=== PATIENT | male | born 1960 | race African-American/Black ===

== ENCOUNTER 2023-04-09 21:35 | Emergency (ER) | payer SELFPAY ==
[~2023-04-09] VITALS: Ht 167.6 cm; Wt 62.0 kg
[2023-04-09 21:39] VITALS: TEMP 98.9; O2SAT 97
[2023-04-09 22:42] LABS: BASOPHILS % 0.3 % (0.0-2.0); EOSINOPHILS % 0.5 % (0.0-5.0); HEMATOCRIT. 41.3 % (42.0-52.0); LYMPHOCYTES % 8.6 % (20.0-50.0); MEAN CORPUSCULAR HEMOGLOBIN 32.1 pg (28.0-32.0); MEAN CORPUSCULAR VOLUME 95.1 fL (80.0-94.0); MEAN PLATELET VOLUME 7.8 fl (7.4-10.4); MONOCYTES % 3.9 % (2.0-8.0); NEUTROPHILS % 86.7 % (40.0-76.0); PLATELET 221 x1000/uL (130-400); RED BLOOD CELL COUNT 4.35 mill/uL (4.7-6.1); RED CELL DISTRIBUTION WIDTH 13.7 % (11.6-14.6)
[2023-04-09 22:50] LABS: CHLORIDE 109 mEq/L (98-107)
[2023-04-09 23:01] LABS: ETHANOL BLOOD < 10 mg/dL (-10)
[2023-04-09 23:43] VITALS: BP 148/68; PULSE 73; RESP 18
[2023-04-09] MEDS ORDERED: HYDROCODONE/ACETAMINOPHEN 5/325MG TABLET PO STA (23:43)
[2023-04-10] MEDS ORDERED: NAPR-681 PO (01:02)
[2023-04-10] MEDS ORDERED: CYCL5TAB PO (01:02)
== END 2023-04-10 01:44 | disposition home or self-care (01) ==
LOC: ER 21:35
DX: S20.219A Contusion of unspecified front wall of thorax, initial encounter (principal); F12.10 Cannabis abuse, uncomplicated; M25.552 Pain in left hip; V49.49XA Driver injured in collision with other motor vehicles in traffic accident, initial encounter; Y93.89 Activity, other specified; Y92.89 Other specified places as the place of occurrence of the external cause; Y99.8 Other external cause status
CPT/HCPCS: 80053; 80320; 83880; 85025; 84484; 36415; 71045; 93005; 99285; 73502; 73552; Z7610; G0480

== ENCOUNTER 2025-04-08 19:38 | Inpatient (IN) | payer OTHER ==
[~2025-04-08] VITALS: Ht 170.2 cm; Wt 49.9 kg
[~2025-04-08 19:38] MED LIST: ALBU18HF2 IH; CYCL5TAB3 PO; FLUT1DIS3 INH; KEPP500 MT; NAPR-681 PO; P20 MT
[2025-04-08 20:03] LABS: HEMATOCRIT. 39.2 % (42.0-52.0); HEMOGLOBIN. 13.2 g/dL (14.0-18.0); MEAN PLATELET VOLUME 8.4 fl (7.4-10.4); PLATELET 290 x1000/uL (130-400); RED BLOOD CELL COUNT 4.23 mill/uL (4.7-6.1); RED CELL DISTRIBUTION WIDTH 13.3 % (11.6-14.6)
[2025-04-08] MEDS: PREDNISONE 20MG TABLET PO STA (20:11)
[2025-04-08 20:13] VITALS: PULSE 111; RESP 20; O2SAT 94
[2025-04-08] MEDS: ALBUTEROL (0.083%) 2.5MG/3ML NEB HHN STA (20:13)
[2025-04-08] MEDS: IPRATROPIUM BROMIDE (0.02%) 0.5MG/2.5ML NEB HHN STA (20:13)
[2025-04-08 20:17] LABS: CREATININE 1.1 mg/dL (0.6-1.3)
[2025-04-08 20:18] LABS: UREA NITROGEN BLOOD 18 mg/dL (9-23)
[2025-04-08 21:10] LABS: BAND% 9.0 % (1.0-6.0); LYMPHOCYTES % MANUAL 4.0 % (20.0-50.0); MONOCYTES % MANUAL 4.0 % (2.0-8.0); MYELOCYTES % 2.0 % (0-0); NEUTROPHILS % MANUAL 81.0 % (45.0-75.0); PLATELET ESTIMATE NORMAL
[2025-04-08] MEDS ORDERED: ACETAMINOPHEN 325MG TABLET PO PRN ×2 (22:45)
[2025-04-08] MEDS ORDERED: IPRATROPIUM/ALBUTEROL 0.5-3(2.5)MG/3ML NEB HHN PRN (22:45)
[2025-04-08] MEDS ORDERED: CLONIDINE 0.1MG TABLET PO PRN (22:45)
[2025-04-08] MEDS ORDERED: ONDANSETRON HCL 4MG/2ML INJ IV PRN (22:45)
[2025-04-08 23:13] VITALS: BP 121/72; PULSE 95; RESP 25; TEMP 36.9; O2SAT 94
[2025-04-08 23:49] VITALS: BP 121/72; PULSE 87; RESP 22; TEMP 37
[2025-04-09] MEDS ORDERED: IPRATROPIUM/ALBUTEROL 0.5-3(2.5)MG/3ML NEB HHN SCH
[2025-04-09] MEDS: SODIUM CHLORIDE 0.9% 1,000 ML IV ONE (00:18)
[2025-04-09] MEDS: METHYLPREDNISOLONE SOD SUCC 40MG/ML (ACT-O-VIAL) IV SCH (00:18)
[2025-04-09] MEDS: AZITHROMYCIN 500 MG TABLET PO SCH (00:18)
[2025-04-09] MEDS: ENOXAPARIN 40MG/0.4ML SYR SUBCUT SCH (00:19)
[2025-04-09 00:25] LABS: PHOSPHORUS 3.4 mg/dL (2.5-4.9)
[2025-04-09] MEDS: CEFTRIAXONE 1GM/50ML 50 ML IV SCH ×2 (00:57→22:38)
[2025-04-09 01:03] LABS: LACTIC ACID 2.2 mmol/L (0.4-2.0)
[2025-04-09 03:39] LABS: *AMPHETAMINES SCREEN URINE NEGATIVE (NEGATIVE); *BARBITURATES SCREEN URINE NEGATIVE (NEGATIVE); *BENZODIAZEPINES SCREEN URINE NEGATIVE (NEGATIVE); *COCAINE SCREEN URINE NEGATIVE (NEGATIVE)
[2025-04-09 03:40] LABS: CANNABINOID URINE SCREEN NEGATIVE (NEGATIVE); ECSTASY MDMA SCREEN URINE NEGATIVE (NEGATIVE); METHADONE URINE SCREEN NEGATIVE (NEGATIVE); OPIATES URINE SCREEN NEGATIVE (NEGATIVE); PHENCYCLIDINE URINE SCREEN NEGATIVE (NEGATIVE)
[2025-04-09 04:00] VITALS: BP 117/57; PULSE 66; RESP 24; TEMP 36.6; O2SAT 96
[2025-04-09 05:00] LABS: CLARITY URINE CLEAR (CLEAR); COLOR URINE YELLOW (YELLOW); GLUCOSE URINE NEGATIVE (NEGATIVE); KETONES URINE NEGATIVE (NEGATIVE); LEUKOCYTE ESTERASE URINE NEGATIVE (NEGATIVE); NITRITE URINE NEGATIVE (NEGATIVE); OCCULT BLOOD URINE NEGATIVE (NEGATIVE); PH URINE 5.5 (4.5-8.0); PROTEIN URINE NEGATIVE (NEGATIVE); SPECIFIC GRAVITY URINE 1.007 (1.005-1.030); UROBILINOGEN URINE 1.0 E.U./dL (0.2-1.0)
[2025-04-09] MEDS: GUAIFENESIN 200MG/10ML SUGAR FREE UDC PO PRN (06:16)
[2025-04-09] MEDS ORDERED: FLUT1BLS3 (06:28)
[2025-04-09] MEDS ORDERED: BENZ100C86 PO (06:28)
[2025-04-09] MEDS ORDERED: D-ME473S50 PO (06:28)
[2025-04-09 06:56] LABS: TROPONIN I HIGH SENSITIVITY 4 ng/L (3.0-53)
[2025-04-09 07:00] LABS: CREATININE 1.1 mg/dL (0.6-1.3); T4 FREE 1.17 ng/dL (0.89-1.76); TRIGLYCERIDE 46 mg/dL (0-150); UREA NITROGEN BLOOD 17 mg/dL (9-23)
[2025-04-09 07:01] LABS: LDL CHOLESTEROL 38 mg/dL (5-100)
[2025-04-09 08:00] VITALS: BP 120/60; PULSE 91; RESP 20; TEMP 36.7; O2SAT 99
[2025-04-09] MEDS: FERROUS SULFATE 325MG TABLET PO SCH (08:27)
[2025-04-09] MEDS: AZITHROMYCIN 250 MG TABLET PO SCH (08:27)
[2025-04-09] MEDS: NICOTINE 7MG PATCH TD SCH (08:27)
[2025-04-09] MEDS ORDERED: ALBUTEROL 6.7GM HFA INHALER ORI SCH (08:30)
[2025-04-09 09:16] LABS: HEMATOCRIT. 39.7 % (42.0-52.0); HEMOGLOBIN. 13.0 g/dL (14.0-18.0); MEAN PLATELET VOLUME 8.5 fl (7.4-10.4); PLATELET 292 x1000/uL (130-400); RED BLOOD CELL COUNT 4.24 mill/uL (4.7-6.1); RED CELL DISTRIBUTION WIDTH 13.7 % (11.6-14.6)
[2025-04-09] MEDS: SODIUM ZIRCONIUM CYCLOSILICATE 10GM/PACKET PO SCH (09:57)
[2025-04-09] MEDS ORDERED: DEXTROSE 50% WATER 50ML SYRINGE IV PRN (10:30)
[2025-04-09 12:00] VITALS: PULSE 78; RESP 18; TEMP 36.7; O2SAT 99
[2025-04-09 12:40] LABS: LACTIC ACID 2.3 mmol/L (0.4-2.0)
[2025-04-09] MEDS: BLOOD SUGAR DIAGNOSTIC STRIP TEST SCH (12:42)
[2025-04-09] MEDS: INSULIN LISPRO 100 UNITS/ML SUBCUT SCH (12:50)
[2025-04-09 14:17] LABS: BAND% 5.0 % (1.0-6.0); LYMPHOCYTES % MANUAL 6.0 % (20.0-50.0); NEUTROPHILS % MANUAL 89.0 % (45.0-75.0); PLATELET ESTIMATE NORMAL
[2025-04-09 16:00] VITALS: BP 104/47; PULSE 66; RESP 23; TEMP 36.9; O2SAT 94
[2025-04-09 18:15] LABS: TROPONIN I HIGH SENSITIVITY 5 ng/L (3.0-53)
[2025-04-09] MEDS: SODIUM CHLORIDE 0.9% 500 ML IV ONE (18:22)
[2025-04-09 18:42] LABS: INFLUENZA TYPE A Presumptive Negative (Pres. Neg.)
[2025-04-09 18:44] LABS: INFLUENZA TYPE B Presumptive Negative (Pres. Neg.)
[2025-04-09 18:45] LABS: RESPIRATORY SYNCYTIAL VIRUS Not Detected (Not Detectd)
[2025-04-09 19:34] VITALS: BP 108/65; PULSE 80; RESP 17; TEMP 36.5; O2SAT 97
[2025-04-09] MEDS: FAMOTIDINE 20MG TABLET PO SCH (20:36)
[2025-04-09 21:32] VITALS: PULSE 74; RESP 16; O2SAT 96
[2025-04-09] MEDS: ALBUTEROL (0.083%) 2.5MG/3ML NEB HHN SCH (22:09)
[2025-04-09 23:43] LABS: LACTIC ACID 2.1 mmol/L (0.4-2.0)
[2025-04-10] VITALS (8 sets, daily range): BP systolic 105–129; BP diastolic 52–65; PULSE 60–97; RESP 18–23; TEMP 36.4–36.8; O2SAT 93–97
[2025-04-10 01:18] LABS: ASPARTATE AMINOTRANSFERASE 32 IU/L (<34); BILIRUBIN DIRECT < 0.1 mg/dL (<=3.0)
[2025-04-10 01:19] LABS: BILIRUBIN TOTAL 0.2 mg/dL (0.1-1.0); PROTEIN TOTAL 6.6 g/dL (6.0-8.3)
[2025-04-10 06:27] LABS: HEMATOCRIT. 36.6 % (42.0-52.0); HEMOGLOBIN. 12.0 g/dL (14.0-18.0); MEAN PLATELET VOLUME 8.1 fl (7.4-10.4); PLATELET 309 x1000/uL (130-400); RED BLOOD CELL COUNT 3.94 mill/uL (4.7-6.1); RED CELL DISTRIBUTION WIDTH 13.6 % (11.6-14.6)
[2025-04-10 06:53] LABS: CREATININE 0.8 mg/dL (0.6-1.3); UREA NITROGEN BLOOD 18 mg/dL (9-23)
[2025-04-10 09:24] LABS: BAND% 4.0 % (1.0-6.0); LYMPHOCYTES % MANUAL 4.0 % (20.0-50.0); MONOCYTES % MANUAL 3.0 % (2.0-8.0); NEUTROPHILS % MANUAL 89.0 % (45.0-75.0); PLATELET ESTIMATE NORMAL
[2025-04-10] MEDS: METHYLPREDNISOLONE SOD SUCC 40MG/ML (ACT-O-VIAL) IV SCH (22:54)
[2025-04-11] VITALS (8 sets, daily range): BP systolic 106–133; BP diastolic 52–83; PULSE 58–86; RESP 18–26; TEMP 36.4–36.7; O2SAT 93–98
[2025-04-11 08:05] LABS: HEMATOCRIT. 37.7 % (42.0-52.0); HEMOGLOBIN. 12.2 g/dL (14.0-18.0); MEAN PLATELET VOLUME 9.0 fl (7.4-10.4); PLATELET 337 x1000/uL (130-400); RED BLOOD CELL COUNT 4.00 mill/uL (4.7-6.1); RED CELL DISTRIBUTION WIDTH 13.5 % (11.6-14.6)
[2025-04-11 08:27] LABS: CREATININE 0.8 mg/dL (0.6-1.3); UREA NITROGEN BLOOD 16 mg/dL (9-23)
[2025-04-11 10:10] LABS: BAND% 3.0 % (1.0-6.0); LYMPHOCYTES % MANUAL 4.0 % (20.0-50.0); NEUTROPHILS % MANUAL 93.0 % (45.0-75.0)
[2025-04-11 10:11] LABS: PLATELET ESTIMATE NORMAL
[2025-04-11] MEDS ORDERED: LACTULOSE 20G/30ML UDC PO PRN (15:15)
[2025-04-12] VITALS (9 sets, daily range): BP systolic 115–147; BP diastolic 52–88; PULSE 64–83; RESP 14–23; TEMP 36.6–36.9; O2SAT 93–98
[2025-04-12 06:46] LABS: HEMATOCRIT. 37.4 % (42.0-52.0); HEMOGLOBIN. 12.4 g/dL (14.0-18.0); MEAN PLATELET VOLUME 8.4 fl (7.4-10.4); PLATELET 332 x1000/uL (130-400); RED BLOOD CELL COUNT 3.98 mill/uL (4.7-6.1); RED CELL DISTRIBUTION WIDTH 13.4 % (11.6-14.6)
[2025-04-12 07:06] LABS: CREATININE 0.8 mg/dL (0.6-1.3); UREA NITROGEN BLOOD 16 mg/dL (9-23)
[2025-04-12 09:08] LABS: BAND% 3.0 % (1.0-6.0); LYMPHOCYTES % MANUAL 4.0 % (20.0-50.0); MONOCYTES % MANUAL 1.0 % (2.0-8.0); NEUTROPHILS % MANUAL 92.0 % (45.0-75.0)
[2025-04-12 09:09] LABS: PLATELET ESTIMATE NORMAL
[2025-04-12] MEDS: METHYLPREDNISOLONE SOD SUCC 40MG/ML (ACT-O-VIAL) IV SCH (09:53)
[2025-04-13] VITALS: BP 126/55; PULSE 70; RESP 16; TEMP 36.6; O2SAT 98
[2025-04-13 02:26] VITALS: PULSE 65; RESP 18; O2SAT 97
[2025-04-13 04:00] VITALS: BP 123/69; PULSE 64; RESP 21; TEMP 36.3; O2SAT 97
[2025-04-13 07:26] LABS: BASOPHILS % 0.2 % (0.0-2.0); EOSINOPHILS % 0.2 % (0.0-5.0); HEMATOCRIT. 39.5 % (42.0-52.0); HEMOGLOBIN. 12.8 g/dL (14.0-18.0); LYMPHOCYTES % 15.2 % (20.0-50.0); MEAN PLATELET VOLUME 8.2 fl (7.4-10.4); MONOCYTES % 6.7 % (2.0-8.0); NEUTROPHILS % 77.7 % (40.0-76.0); PLATELET 354 x1000/uL (130-400); RED BLOOD CELL COUNT 4.23 mill/uL (4.7-6.1); RED CELL DISTRIBUTION WIDTH 13.8 % (11.6-14.6)
[2025-04-13 07:43] LABS: CREATININE 0.8 mg/dL (0.6-1.3); UREA NITROGEN BLOOD 14 mg/dL (9-23)
[2025-04-13 08:00] VITALS: BP 120/72; PULSE 71; RESP 20; TEMP 36.4; O2SAT 98
[2025-04-13 09:13] VITALS: PULSE 61; RESP 17; O2SAT 95
[2025-04-13 14:21] VITALS: PULSE 61; RESP 12
== END 2025-04-13 14:39 | disposition left against medical advice (07) | DRG 871 ==
LOC: ER 19:38 → EDBEDREQ 20:18 → 3WST 22:35 → EDBEDREQ 22:37 → ENRESERV 22:49 → 3WST 04-09 00:35
PROVIDERS: ADMIT Hospitalist; ATTEND Hospitalist
PROC: 5A09357 Assistance with Respiratory Ventilation, Less than 24 Consecutive Hours, Continuous Positive Airway Pressure (ICD-10-PCS; 2025-04-11)
PROC: 5A09357 Assistance with Respiratory Ventilation, Less than 24 Consecutive Hours, Continuous Positive Airway Pressure (ICD-10-PCS; principal; 2025-04-12)
DX: A41.9 Sepsis, unspecified organism (principal); E43 Unspecified severe protein-calorie malnutrition; J96.21 Acute and chronic respiratory failure with hypoxia; E87.20 Acidosis, unspecified; J44.1 Chronic obstructive pulmonary disease with (acute) exacerbation; E87.1 Hypo-osmolality and hyponatremia; Z68.1 Body mass index [BMI] 19.9 or less, adult; D64.9 Anemia, unspecified; E11.65 Type 2 diabetes mellitus with hyperglycemia; E78.5 Hyperlipidemia, unspecified; F17.210 Nicotine dependence, cigarettes, uncomplicated; J39.8 Other specified diseases of upper respiratory tract; E87.5 Hyperkalemia; Z53.29 Procedure and treatment not carried out because of patient's decision for other reasons; Z20.822 Contact with and (suspected) exposure to COVID-19; Z79.51 Long term (current) use of inhaled steroids; Z79.899 Other long term (current) drug therapy; Z86.11 Personal history of tuberculosis; Z99.81 Dependence on supplemental oxygen
CPT/HCPCS: 36415; 71045; 80048; 80061; 80076; 80305; 81003; 82040; 82728; 82962; 83036; 83540; 83550; 83605; 83735; 83880; 84100; 84134; 84145; 84439; 84443; 84484; 85025; 85379; 85651; 87070; 87116; 87305; 87420; 87426; 87449; 87804; 93005; 93970; 94070; 94640; 94664; 98960; 99285; A4606; J0696; J1650; J1815; J2919; J7512

== ENCOUNTER 2025-09-27 10:23 | Inpatient (IN) | payer OTHER ==
[~2025-09-27] VITALS: Ht 170.2 cm; Wt 52.6 kg
[~2025-09-27 10:23] MED LIST changes: -CYCL5TAB3 PO; +FLUT1BLS3; -FLUT1DIS3 INH; +IPRA3AMP31; -KEPP500 MT; +METH4TAB95 MT; -NAPR-681 PO; -P20 MT; +TRELEGY
[2025-09-27] MEDS: MAGNESIUM 2 G PREMIX 50 ML IV ONE (10:47)
[2025-09-27] MEDS: ALBUTEROL (0.5%) 2.5MG/0.5ML NEB HHN ONE (10:58)
[2025-09-27] MEDS: IPRATROPIUM BROMIDE (0.02%) 0.5MG/2.5ML NEB HHN ONE (10:59)
[2025-09-27 11:02] LABS: BASOPHILS % 0.4 % (0.0-2.0); EOSINOPHILS % 2.9 % (0.0-5.0); HEMATOCRIT. 43.2 % (42.0-52.0); HEMOGLOBIN. 13.6 g/dL (14.0-18.0); LYMPHOCYTES % 26.9 % (20.0-50.0); MEAN PLATELET VOLUME 8.5 fl (7.4-10.4); MONOCYTES % 4.1 % (2.0-8.0); NEUTROPHILS % 65.7 % (40.0-76.0); PLATELET 180 x1000/uL (130-400); RED BLOOD CELL COUNT 4.34 mill/uL (4.7-6.1); RED CELL DISTRIBUTION WIDTH 14.3 % (11.6-14.6)
[2025-09-27 11:25] LABS: CREATININE 0.8 mg/dL (0.6-1.3); UREA NITROGEN BLOOD < 5 mg/dL (9-23)
[2025-09-27 11:27] LABS: TROPONIN I HIGH SENSITIVITY < 4 ng/L (3.0-53)
[2025-09-27] MEDS: HYDRALAZINE 20MG/ML VIAL IV NR (11:29)
[2025-09-27 11:30] VITALS: RESP 25
[2025-09-27 13:19] LABS: TROPONIN I HIGH SENSITIVITY 5 ng/L (3.0-53)
[2025-09-27 14:55] VITALS: RESP 22
[2025-09-27] MEDS: LIDOCAINE HCL 1% 20ML VIAL INFIL SCH (15:43)
[2025-09-27] MEDS: MORPHINE SULFATE 4 MG/ML INJ (FOR IV/IM USE) IV NR (15:43)
[2025-09-27] MEDS ORDERED: CEFTRIAXONE 1,000 MG in DEXT 5% WATER 100 ML IV SCH (15:45)
[2025-09-27] MEDS: CEFTRIAXONE 1GM/50ML 50ML IV SCH (16:04)
[2025-09-27 20:30] VITALS: RESP 24
[2025-09-27 22:30] VITALS: BP 126/66; PULSE 83; RESP 17; TEMP 36.696
[2025-09-27 23:00] VITALS: BP 119/68; PULSE 72; RESP 12; O2SAT 97
[2025-09-27 23:30] VITALS: BP 119/60; PULSE 73; RESP 14; O2SAT 97
[2025-09-27] MEDS ORDERED: ALBUTEROL 6.7GM HFA INHALER ORI PRN (23:45)
[2025-09-27] MEDS ORDERED: FLUTICASONE/VILANTEROL 200-25 BLST.W.DEV ORI PRN (23:45)
[2025-09-28] VITALS (22 sets, daily range): BP systolic 100–130; BP diastolic 59–65; PULSE 60–80; RESP 12–23; TEMP 36.3–36.9; O2SAT 87–100
[2025-09-28] MEDS: MORPHINE SULFATE 2 MG/ML INJ (NOT FOR IM USE) IV PRN (01:01)
[2025-09-28] MEDS ORDERED: ALBUTEROL (0.083%) 2.5MG/3ML NEB HHN PRN (01:15)
[2025-09-28] MEDS: BUDESONIDE 0.5MG/2ML NEB HHN SCH (02:55)
[2025-09-28 06:03] LABS: BASOPHILS % 0.1 % (0.0-2.0); EOSINOPHILS % 0.0 % (0.0-5.0); HEMATOCRIT. 42.7 % (42.0-52.0); HEMOGLOBIN. 14.1 g/dL (14.0-18.0); LYMPHOCYTES % 9.9 % (20.0-50.0); MEAN PLATELET VOLUME 8.3 fl (7.4-10.4); MONOCYTES % 6.9 % (2.0-8.0); NEUTROPHILS % 83.1 % (40.0-76.0); PLATELET 216 x1000/uL (130-400); RED BLOOD CELL COUNT 4.48 mill/uL (4.7-6.1); RED CELL DISTRIBUTION WIDTH 13.4 % (11.6-14.6)
[2025-09-28 06:22] LABS: CREATININE 0.9 mg/dL (0.6-1.3)
[2025-09-28 06:23] LABS: UREA NITROGEN BLOOD 10 mg/dL (9-23)
[2025-09-28] MEDS: ALBUTEROL (0.083%) 2.5MG/3ML NEB HHN SCH (08:40)
[2025-09-28] MEDS: HYDROCODONE/ACETAMINOPHEN 5/325MG TABLET PO PRN (15:56)
[2025-09-29] VITALS (12 sets, daily range): BP systolic 106–126; BP diastolic 59–80; PULSE 68–85; RESP 15–22; TEMP 36.4–37.1; O2SAT 92–98
[2025-09-29 07:44] LABS: BASOPHILS % 0.9 % (0.0-2.0); EOSINOPHILS % 2.4 % (0.0-5.0); HEMATOCRIT. 41.7 % (42.0-52.0); HEMOGLOBIN. 13.8 g/dL (14.0-18.0); LYMPHOCYTES % 13.9 % (20.0-50.0); MEAN PLATELET VOLUME 9.2 fl (7.4-10.4); MONOCYTES % 7.1 % (2.0-8.0); NEUTROPHILS % 75.7 % (40.0-76.0); PLATELET 205 x1000/uL (130-400); RED BLOOD CELL COUNT 4.39 mill/uL (4.7-6.1); RED CELL DISTRIBUTION WIDTH 13.2 % (11.6-14.6)
[2025-09-29 07:50] LABS: CREATININE 0.8 mg/dL (0.6-1.3); UREA NITROGEN BLOOD 11 mg/dL (9-23)
[2025-09-29 07:51] LABS: PROTEIN TOTAL 6.7 g/dL (6.0-8.3)
[2025-09-29 07:52] LABS: ASPARTATE AMINOTRANSFERASE 24 IU/L (<34)
[2025-09-29 07:53] LABS: BILIRUBIN TOTAL 0.7 mg/dL (0.1-1.0)
[2025-09-30] VITALS (16 sets, daily range): BP systolic 107–124; BP diastolic 62–81; PULSE 66–97; RESP 15–23; TEMP 36.6–37.6; O2SAT 94–97
[2025-09-30 05:51] LABS: CREATININE 0.8 mg/dL (0.6-1.3); UREA NITROGEN BLOOD 14 mg/dL (9-23)
[2025-09-30 06:12] LABS: BASOPHILS % 0.4 % (0.0-2.0); EOSINOPHILS % 2.3 % (0.0-5.0); HEMATOCRIT. 42.2 % (42.0-52.0); HEMOGLOBIN. 13.9 g/dL (14.0-18.0); LYMPHOCYTES % 12.0 % (20.0-50.0); MEAN PLATELET VOLUME 8.5 fl (7.4-10.4); MONOCYTES % 5.9 % (2.0-8.0); NEUTROPHILS % 79.4 % (40.0-76.0); PLATELET 219 x1000/uL (130-400); RED BLOOD CELL COUNT 4.46 mill/uL (4.7-6.1); RED CELL DISTRIBUTION WIDTH 13.5 % (11.6-14.6)
[2025-09-30] MEDS: BISACODYL 5MG TABLET PO PRN (13:57)
[2025-09-30] MEDS: SENNOSIDES/DOCUSATE SOD 8.6/50MG TABLET PO PRN (13:57)
[2025-09-30] MEDS: ALBUTEROL (0.083%) 2.5MG/3ML NEB HHN SCH (21:11)
[2025-10-01] VITALS (10 sets, daily range): BP systolic 101–119; BP diastolic 64–74; PULSE 71–95; RESP 5–22; TEMP 36.4–37.1; O2SAT 96–100
[2025-10-02] VITALS (9 sets, daily range): BP systolic 108–140; BP diastolic 50–99; PULSE 77–86; RESP 16–21; TEMP 36.6–36.9; O2SAT 93–99
== END 2025-10-02 17:10 | disposition home or self-care (01) | DRG 199 ==
LOC: ER 10:31 → 5EST 12:47 → EDBEDREQ 12:51 → EDBEDREQTM 12:51 → ENRESERV 20:54
PROVIDERS: ADMIT Internal Medicine; ATTEND Internal Medicine
PROC: 0W9930Z Drainage of Right Pleural Cavity with Drainage Device, Percutaneous Approach (ICD-10-PCS; principal; 2025-09-27)
PROC: 5A09357 Assistance with Respiratory Ventilation, Less than 24 Consecutive Hours, Continuous Positive Airway Pressure (ICD-10-PCS; 2025-09-27)
DX: J93.9 Pneumothorax, unspecified (principal); J96.01 Acute respiratory failure with hypoxia; J96.02 Acute respiratory failure with hypercapnia; Z99.81 Dependence on supplemental oxygen; J98.2 Interstitial emphysema; J44.0 Chronic obstructive pulmonary disease with (acute) lower respiratory infection; I10 Essential (primary) hypertension; J44.1 Chronic obstructive pulmonary disease with (acute) exacerbation; Z20.822 Contact with and (suspected) exposure to COVID-19; F17.210 Nicotine dependence, cigarettes, uncomplicated; Z86.11 Personal history of tuberculosis
CPT/HCPCS: 32551; 36415; 71045; 71250; 80048; 80053; 83880; 84484; 85025; 87426; 93005; 94070; 94640; 94660; 94664; 96365; 98960; 99291; A4606; A4615; J0696; J2003; J2270; J3475; J7626